=== PATIENT | male | born 1985 | race African-American/Black ===

== ENCOUNTER 2021-05-27 18:31 | Emergency (ER) | payer OTHER ==
[2021-05-27 18:38] VITALS: BP 150/84; PULSE 73; TEMP 98.2; BMI 24.7
[2021-05-27] MEDS ORDERED: methylPREDNISolone NA SUCC 125 MG/2 ML VIAL IVPB ONE (19:58)
[2021-05-27] MEDS ORDERED: FAMOTIDINE 20 MG/50 ML IVPB 20 MG/50 ML MG IVPB ONE ×2 (19:58→20:09)
[2021-05-27] MEDS ORDERED: methylPREDNISolone NA SUCC 125 MG/2 ML VIAL ONE (20:10)
== END 2021-05-27 22:01 | disposition home or self-care (01) ==
LOC: JER 18:31
PROC: 3E033GC Introduction of Other Therapeutic Substance into Peripheral Vein, Percutaneous Approach (ICD-10-PCS; principal; 2021-05-27)
PROC: 3E033GC Introduction of Other Therapeutic Substance into Peripheral Vein, Percutaneous Approach (ICD-10-PCS; 2021-05-27)
PROC: 3E033GC Introduction of Other Therapeutic Substance into Peripheral Vein, Percutaneous Approach (ICD-10-PCS; 2021-05-27)
DX: T78.40XA Allergy, unspecified, initial encounter (principal)
CPT/HCPCS: 99284-25